=== PATIENT | female | born 1960 | race Caucasian/White ===

== ENCOUNTER 2018-10-19 10:00 | Emergency (ER) | payer OTHER ==
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
--- NOTE | 2018-10-19 11:45 | RADIOLOGY REPORT (SQ) ---
EXAM DESCRIPTION: CT CHEST WITH COMPLETED DATE/TIME: 10/19/2018 11:36 am REASON FOR STUDY: trauma, left chest wall pain COMPARISON: None. TECHNIQUE: CT scan of the chest performed using helical scanning technique with dynamic intravenous contrast injection. Images reviewed with lung, soft tissue and bone windows. Reconstructed coronal and sagittal MPR and MIP images reviewed. All images stored on PACS. All CT scanners at this facility use dose modulation, iterative reconstruction, and/or weight based d osing when appropriate to reduce radiation dose to as low as reasonably achievable (ALARA). [facility]: Dose Right [facility]: CareDose [facility]: Dose Right [facility]: Teradose 4D [facility]: [employer] CONTRAST TYPE AND DOSE: 80 mL Omnipaque 350- low osmolar. RENAL FUNCTION: Not performed due to patient's clinical condition. RADIATION DOSE: CT Rad equipment meets quality standard of care and radiation dose reduction techniq ues were employed. CTDIvol: 8.5 mGy. DLP: 288 mGy-cm. . LIMITATIONS: None. FINDINGS: LUNGS AND PLEURA: No opacities, nodules, masses. No pneumothorax. No effusions. HILAR AND MEDIASTINAL STRUCTURES: No identified masses or abnormal nodes. HEART AND VASCULAR STRUCTURES: No aneurysm or dissection. No central pulmonary emboli. No pericardi al effusion. HARDWARE: None in the chest. UPPER ABDOMEN: No significant findings. Limited exam. THYROID AND OTHER SOFT TISSUES: No masses. No adenopathy. BONES: No significant finding. OTHER: No other significant finding. IMPRESSION: NORMAL CT OF THE CHEST WITH IV CONTRAST. TECHNICAL DOCUMENTATION: JOB ID: [id number] Quality ID # [id number]: Final reports with documentation of one or more dose reduction techniques (e.g., Au tomated exposure control, adjustment of the mA and/or kV according to patient size, use of iterative reconstruction technique) 2010 [employer]- All Rights Reserved Reading location - IP/workstation name: [email or web address]
[2018-10-19] MEDS ORDERED: IBUPROFEN 600 MG TABLET PO ONE (12:33)
[2018-10-19 12:54] VITALS: BP 123/72
== END 2018-10-19 12:52 | disposition home or self-care (01) ==
LOC: ER 10:00
DX: S20.212A Contusion of left front wall of thorax, initial encounter (principal); S40.012A Contusion of left shoulder, initial encounter; M25.512 Pain in left shoulder; V43.52XA Car driver injured in collision with other type car in traffic accident, initial encounter; M47.9 Spondylosis, unspecified; M62.830 Muscle spasm of back; F17.200 Nicotine dependence, unspecified, uncomplicated
CPT/HCPCS: 71260; 72125; 99284

== ENCOUNTER → 2019-08-08 | Day surgery (SDC) | payer OTHER ==
--- NOTE | 2019-08-08 14:36 | RADIOLOGY REPORT (SQ) ---
EXAM DESCRIPTION: CT SOFT TISSUE NECK WITH COMPLETED DATE/TIME: 08/08/2019 2:03 pm REASON FOR STUDY: PAROTID MASS (K11.8) K11.8 OTHER DISEASES OF SALIVARY GLANDS COMPARISON: None. TECHNIQUE: Post IV contrasted scanning from skull base through lung apices with review of bone, soft tissue and lung windows. Reconstructed coronal and sagittal MPR images reviewed. All images stored on PACS. All CT scanners at this facility use dose modulation, iterative reconstruction, and/or weight based d osing when appropriate to reduce radiation dose to as low as reasonably achievable (ALARA). [facility]: Dose Right [facility]: CareDose [facility]: Dose Right [facility]: Teradose 4D [facility]: [employer] CONTRAST TYPE AND DOSE: contrast/concentration: Isovue 350.00 mg/ml; Total Contrast Delivered: 75.0 ml; Total Saline Delivered: 55.0 ml RENAL FUNCTION: GFR > 60. RADIATION DOSE: . LIMITATIONS: None. FINDINGS: SKULL BASE: Intact. MAJOR SALIVARY GLANDS: 1.8 x 2.3 cm heterogeneous mass along the inferior margin of the left parotid gland. LYMPHADENOPATHY: No adenopathy. MUCOSAL MASSES OR ASYMMETRY: No mucosal masses or asymmetry. LARYNX/CORDS: No abnormal findings. VASCULAR STRUCTURES: The major vessels are patent. LUNG APICES: Clear. BONES: Intact. THYROID: Normal size. No masses. PARANASAL SINUSES: Clear. OTHER: No other significant finding. IMPRESSION: Left parotid solid mass. FNA has been scheduled. TECHNICAL DOCUMENTATION: JOB ID: [id number] Quality ID # [id number]: Final reports with documentation of one or more dose reduction techniques (e.g., Au tomated exposure control, adjustment of the mA and/or kV according to patient size, use of iterative reconstruction technique) 2010 [employer]- All Rights Reserved Reading location - IP/workstation name: [email or web address]
--- NOTE | 2019-08-08 15:54 | RADIOLOGY REPORT (SQ) ---
EXAM DESCRIPTION: U/S BX SOFT TISS NECK THORX COMPLETED DATE/TIME: 08/08/2019 3:14 pm REASON FOR STUDY: PAROTID MASS (K11.8) K11.8 OTHER DISEASES OF SALIVARY GLANDS COMPARISON: None. TECHNIQUE: The procedure was discussed with the patient and written informed consent obtained. A ti meout was performed to confirm the procedure and patient's identity. The skin of the neck was preppe d and draped in sterile fashion and 2 cc of 1% lidocaine administered for local anesthesia. Under sonographic guidance, fine needle aspiration biopsy was per formed of the mass in the left parotid gland. Four separate aspirations were performed. Hemostasis was obtained with direct manual compression. T here were no immediate complications. LIMITATIONS: None. FINDINGS: PATHOLOGY: Pending. IMPRESSION: ULTRASOUND-GUIDED BIOPSY PERFORMED OF A MASS IN THE LEFT PAROTID GLAND. PATHOLOGY PENDI NG AT THE TIME OF DICTATION. COMMENT: Patient medication list reviewed: Yes- Quality ID# [id number]:Eligible professional attests to doc umenting in the medical record they obtained, updated, or reviewed the patient's current medications. TECHNICAL DOCUMENTATION: JOB ID: [id number] [employer]- All Rights Reserved Reading location - IP/workstation name: [email or web address]
== END ==
LOC: EDSTATUS 13:00 → RAD 13:02
PROVIDERS: ATTEND Otolaryngology
DX: E78.5 Hyperlipidemia, unspecified (principal); D64.9 Anemia, unspecified; R22.1 Localized swelling, mass and lump, neck; K11.8 Other diseases of salivary glands; Z79.899 Other long term (current) drug therapy
CPT/HCPCS: 21550; 70491; 82565; 88173; 88305

== ENCOUNTER → 2019-11-19 | Outpatient (CLI) | payer OTHER ==
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
== END ==
LOC: RAD 07:58
PROVIDERS: ATTEND Otolaryngology
DX: K11.8 Other diseases of salivary glands (principal)
CPT/HCPCS: 70491; 82565

== ENCOUNTER 2019-12-18 05:32 | Day surgery (SDC) | payer OTHER ==
[2019-12-13 11:00] LABS: ABSOLUTE BASOPHILS # (AUTO) 0.1 10^3/uL (0.0-0.2); ABSOLUTE EOSINOPHILS # (AUTO) 0.1 10^3/uL (0.0-0.6); ABSOLUTE LYMPHOCYTES (AUTO) 2.4 10^3/uL (0.5-4.7); ABSOLUTE MONOCYTES (AUTO) 0.7 10^3/uL (0.1-1.4); ABSOLUTE NEUT (AUTO) 3.8 10^3/uL (1.7-8.2); BASOPHILS % (AUTO) 1.3 % (0-2); HEMATOCRIT 42.5 % (36.0-47.0); HEMOGLOBIN 14.9 g/dL (12.0-15.5); LYMPHOCYTES % (AUTO) 33.3 % (13-45); MEAN CORPUSCULAR HEMOGLOBIN 32.3 pg (27.0-33.4); MEAN CORPUSCULAR VOLUME 92 fl (80-97); MONOCYTES % (AUTO) 9.7 % (3-13); PLATELET COUNT 263 10^3/uL (150-450); RED CELL DISTRIBUTION WIDTH 14.4 % (11.5-14.0); SEGMENTED NEUTROPHILS % (AUTO) 53.7 % (42-78); TOTAL CELLS COUNTED % (AUTO) 100 %; WHITE BLOOD COUNT 7.1 10^3/uL (4.0-10.5)
--- NOTE | 2019-12-13 11:06 | RADIOLOGY REPORT (SQ) ---
EXAM DESCRIPTION: CHEST PA/LATERAL IMAGES COMPLETED DATE/TIME: 12/13/2019 10:56 am REASON FOR STUDY: PRE-OP COMPARISON: 10/28/2014 EXAM PARAMETERS: NUMBER OF VIEWS: two views TECHNIQUE: Digital Frontal and Lateral radiographic views of the chest acquired. RADIATION DOSE: NA LIMITATIONS: none FINDINGS: LUNGS AND PLEURA: No opacities, masses or pneumothorax. No pleural effusion. MEDIASTINUM AND HILAR STRUCTURES: No masses or contour abnormalities. HEART AND VASCULAR STRUCTURES: Heart normal size. No evidence for failure. BONES: No acute findings. HARDWARE: None in the chest. OTHER: No other significant finding. IMPRESSION: NO SIGNIFICANT RADIOGRAPHIC FINDING IN THE CHEST. TECHNICAL DOCUMENTATION: JOB ID: [id number] 2010 [employer]- All Rights Reserved Reading location - IP/workstation name: [email or web address]
[2019-12-13 11:25] LABS: ANION GAP 7 (5-19); BLOOD UREA NITROGEN 14 mg/dL (7-20); CALCIUM 9.5 mg/dL (8.4-10.2); CARBON DIOXIDE 27 mmol/L (22-30); CHLORIDE 104 mmol/L (98-107); GLUCOSE 109 mg/dL (75-110); POTASSIUM 4.9 mmol/L (3.6-5.0)
--- NOTE | 2019-12-15 10:37 | EKG REPORT ---
SEVERITY:- NORMAL ECG - SINUS RHYTHM : Confirmed by: Deedee Benites 15-Dec-2019 10:36:18
[~2019-12-18 05:32] MED LIST: CEFAZOLIN SODIUM 2 GM in DEXTROSE 5%-WATER 100 ML IV PRN
[2019-12-18] MEDS ORDERED: LIDOCAINE 2% INJ (20 MG/ML) 20 ML MDV ONE (07:17)
[2019-12-18] MEDS ORDERED: FENTANYL CITRATE INJ/PF 100 MCG/2 ML AMPUL ONE (07:19)
[2019-12-18] MEDS ORDERED: MIDAZOLAM 2 MG/2 ML INJ ONE (07:19)
[2019-12-18] MEDS ORDERED: PROPOFOL INJ 200 MG/20 ML VIAL IV ONE (07:19)
[2019-12-18] MEDS ORDERED: HYDROMORPHONE HCL INJ/PF 2 MG/ML AMPULE ONE (07:19)
[2019-12-18] MEDS ORDERED: DEXAMETHASONE SOD PHOSPHATE INJ 4 MG/1 ML VIAL ONE ×2 (07:19→13:51)
[2019-12-18] MEDS ORDERED: OXYMETAZOLINE HCL 0.05% NASAL SPRAY 15 ML BOTTLE ONE (07:20)
[2019-12-18] MEDS ORDERED: LIDOCAINE 2%/EPINEPHRINE INJ 1.7 ML CARTRIDGE ONE (07:20)
[2019-12-18] MEDS ORDERED: METHYLENE BLUE 50 MG/10 ML AMPULE ONE (07:25)
[2019-12-18] MEDS ORDERED: MORPHINE SULFATE 10 MG/ML INJ IV PRN (09:30)
[2019-12-18] MEDS ORDERED: FENTANYL CITRATE INJ/PF 100 MCG/2 ML AMPUL IV PRN ×3 (09:30)
[2019-12-18] MEDS ORDERED: OXYCODONE-ACETAMINOPHEN 5-325 MG TABLET PO PRN ×2 (09:30)
[2019-12-18] MEDS ORDERED: ONDANSETRON HCL INJ/PF 4 MG/2 ML SDV IV PRN ×2 (09:30→11:18)
[2019-12-18] MEDS ORDERED: DIPHENHYDRAMINE HCL 50 MG/ML VIAL IV PRN (09:30)
[2019-12-18] MEDS ORDERED: MEPERIDINE HCL/PF INJ 25 MG/1 ML DISP.SYRIN IV PRN (09:30)
[2019-12-18] MEDS ORDERED: HYDROCODONE/ACETAMINOPHEN 5-325 MG TABLET PO PRN (11:17)
--- NOTE | 2019-12-18 12:28 | Operative Report ---
[facility] Oper[facility] Report: Date: 18 Dec 2019 History: 59-year-old female with a left parotid mass. 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 A CT scan was performed which confirmed a left parotid mass in the tail of the parotid. Patient presents today for left parotidectomy. From consent was obtained from the patient. Preoperative Diagnosis: 1. Left parotid Mass, Cytopatholoy consistent with Warthin's tumor Postoperative Diagnosis: Same as above Procedure: 1. Left superficial parotidectomy 2. Use of nerve integrity monitoring Surgeon: Umer Plummer MD, FACS, [facility] [employer] Operator surgeon: Travon Berrios DO Anesthesia: GETShaun Description of the procedure: After receiving informed consent from the patient, the patient was taken to the operating room and placed supine on the operating room table. After successful induction and intubation by anesthesia. Shoulder roll was placed to extend the neck. The head was turned towards the right side, to expose the left surgical field. The modified Davion incision was marked with a marking pen and then infiltrated with 2% Xylocaine with 100,000 epinephrine. The nerve integrity monitoring electrodes were placed to monitor the following branches of the facial nerve: Temporal, zygomatic, buccal and marginal mandibular. The nerve integrity monitor was calibrated and found to be functioning normally. The patient was then prepped and draped in a sterile fashion. 15 blade was then used to incise the skin down to the parotid fascia superiorly and the platysma inferiorly. The platysma muscle was then incised with a 15 blade. Skin flaps were then elevated in a supra SMAS and subplatysmal fashion. The skin flaps were extended out to the masseter muscle. Dissection began superiorly carefully the parotid gland from the surrounding tissue. Inferiorly the anterior border of the sternocleidomastoid muscle was identified and the parotid gland was carefully dissected off of the sternocleidomastoid muscle. It should be noted that the greater auricular nerve was identified and preserved. As the dissection progressed the tragal pointer was identified superiorly and inferiorly the posterior belly of digastric was identified. The tympanomastoid suture line was identified and the dissection at this point was focused on finding the main trunk of the facial nerve. The main trunk of the facial nerve was identified and was stimulated using the Prass probe and all branches were found to be intact/stimulated. A Blas dissector was then used to follow the main trunk of the facial nerve to the pes ansurinas. This was identified and then dissection began the parotid gland from the facial nerve starting with the most inferior branch which was identified and preserved. A large mass was identified in the tail of the parotid. Dissection proceeded from inferior to superior, carefully dissecting the parotid/mass from the branches of the facial nerve until the tumor was removed with an appropriate margin. After the dissection was completed and the tumor removed the Prass probe stimulated the main trunk and all branches were found to be intact. The wound was then irrigated with normal saline and a [place] drain was placed. The wound was then closed in layers. Superiorly the subcutaneous tissue was closed with 5-0 Monocryl. Inferiorly the platysma and subcutaneous tissues was closed with 4-0 Monocryl. Dermabond Mastisol and Steri-Strips were applied to the inferior portion of the wound. Bacitracin applied to the superior portion of the wound. A pressure dressing was then applied. Patient tolerated the procedure well without any complications. Estimated blood loss: 20 mL Fluids: 800 mL The patient was then given back to anesthesia who successfully extubated the patient without any complications. The patient was transported to the postanesthesia care unit in stable condition with spontaneous respirations.
[2019-12-18] MEDS ORDERED: ONDANSETRON HCL INJ/PF 4 MG/2 ML SDV ONE ×2 (12:31→13:51)
[2019-12-18] MEDS ORDERED: ROCURONIUM BROMIDE INJ 50 MG/5 ML VIAL IV ONE (13:51)
[2019-12-18] MEDS ORDERED: GLYCOPYRROLATE 1 MG/5 ML VIAL ONE (13:51)
[2019-12-18] MEDS ORDERED: SUCCINYLCHOLINE CHLORIDE INJ 200 MG/10 ML VIAL ONE (13:51)
[2019-12-18] MEDS ORDERED: PHENYLEPHRINE HCL INJ/PF 10 MG/1 ML SDV ONE (13:51)
[2019-12-18 14:47] VITALS: BP 109/76
== END 2019-12-18 14:05 | disposition home or self-care (01) ==
LOC: OROUT 05:32
PROVIDERS: ATTEND Otolaryngology
DX: D11.9 Benign neoplasm of major salivary gland, unspecified (principal); K11.8 Other diseases of salivary glands; R22.1 Localized swelling, mass and lump, neck; Z79.899 Other long term (current) drug therapy; E78.5 Hyperlipidemia, unspecified; Z03.818 Encounter for observation for suspected exposure to other biological agents ruled out; I25.10 Atherosclerotic heart disease of native coronary artery without angina pectoris; J44.9 Chronic obstructive pulmonary disease, unspecified; R06.02 Shortness of breath
CPT/HCPCS: 93005; 36415; 85025; 87635; 80048; 88305 ×2; 71046; 93010; 42410; J2250; J3490 ×5; J0690; J1100; J1170; J2370; J0330; J2405; J7060; J2704; Q9968; J3010